=== PATIENT | male | born 1980 | race Caucasian/White ===

== ENCOUNTER 2017-01-14 05:26 | Day surgery (SDC) | payer BC ==
[~2017-01-14] VITALS: Ht 185.4 cm; Wt 101.2 kg
--- NOTE | ~2017-01-14 | H ---
[facility] [place] [address] HISTORY AND PHYSICAL Name: JESU CONNER Room #: DEP [facility] M..#: [id number] Admission: 01/14/17 Attend Phys: Pantera Lal MD Discharge: 01/14/17 Date of : 76 Report #: [id number] THIS REPORT FOR: //name// CC: Nitin Lal DATE OF SERVICE: 01/14/2017 ANTICIPATED DATE OF SERVICE: 01/14/3017. CHIEF COMPLAINT: Back and left leg pain with weakness. HISTORY OF PRESENT ILLNESS: The patient is a pleasant 36-year-old right-handed male who initially presented to the outpatient neurosurgery clinic in referral from Dr. Louie Fonseca for assessment and recommendation in management of presenting complaints. The patient's primary care provider is Dr. Young. The patient reports that he has had low back pain, left sided for several months. The patient's back pain complaints had been generally mild. The patient presented to physical therapy for 3 weeks and participated regularly without significant success. The patient reports that approximately three weeks ago, he awoke with pain in the left side of his back into his left lower extremity. The patient had severe pain down the left leg. Two days later, he had numbness and tingling associated with weakness in the left leg and foot. The patient describes his pain as radiating down the side of his leg and top of his foot. The patient has difficult time self rating his pain as he states it fluctuates significantly. The patient presented for assessment for Dr. Fonseca, but he had not submitted to epidural steroid injection at that time. He has been taking pain medication, which he says does help, but it does not relieve his complaints completely. He reports that he can make himself comfortable, but he can also have significant paroxysms of pain, which he can self rate at 10/10 on a visual analog scale for pain. He continues to feel numbness in his foot, but he reports this is not as significant as previous. The patient reports he has a challenging time getting up from a seated position as well as a difficult time getting up from a recumbent position. He reports that his left foot and ankle strength is somewhat improved. He denies right-sided lower extremity complaints. He denies any changes in bowel or bladder habits. No additional complaints were elicited at this time. PAST MEDICAL HISTORY: Denied. PAST SURGICAL HISTORY: Includes an appendectomy and sinus surgery. FAMILY MEDICAL HISTORY: Includes Alzheimer's disease, cancer, diabetes and high blood pressure. SOCIAL HISTORY: The patient is . He is self employed. He denies any [address] [address] HISTORY AND PHYSICAL Name: JESU CONNER Denise Room #: DEP [facility] M.R.#: [id number] Admission: 01/14/17 Attend Phys: Pantera Lal MD Discharge: 01/14/17 Date of : 76 Report #: [id number] history of tobacco abuse. He reports only two alcoholic beverages weekly. He denies any abuse of prescription medications. No illicit substance. CURRENT MEDICATIONS: Listed as Prevacid and "pain medication." ALLERGIES: DOCUMENTED TO PENICILLIN. REVIEW OF SYSTEMS: A 13-point review of systems is performed, which was positive for heartburn, seasonal allergies and snoring. The remainder of his review of systems was negative for additional medical issues other than those noted in the history of present illness and past medical history. PHYSICAL EXAMINATION: GENERAL: The patient is a well-developed, well-nourished male in no acute distress. He has a normal healthy body habitus. There is no dysmorphic features appreciated in his eyes, ears, nose or face. HEAD: Normocephalic and atraumatic. EYES: Pupils are equal and reactive. His extraocular muscles appear to be full. His sclerae are nonicteric. ORAL CAVITY: Tongue is in the midline. Mucosa is moist. Uvula and palate seem to elevate symmetrically. He has good dentition. NECK: Soft and supple. Trachea is midline. Cervical range of motion appears normal. SKIN: Warm and dry with good turgor. BACK: No obvious scoliosis, kyphosis or deformity. MUSCULOSKELETAL: No swelling or deformity appreciated. EXTREMITIES: No cyanosis, clubbing or edema. Capillary refill is normal. Peripheral pulses are 2+ at the radial artery at the wrist bilaterally. NEUROLOGIC: The patient is alert and oriented to person, place and time. His cognitive exam is grossly normal. No abnormal cerebellar findings appreciated. The patient's muscle tone and bulk appeared normal. Cranial nerves 2-12 appeared grossly intact. Motor strength is 5/5, full and symmetric, in the bilateral upper as well as lower extremities with the exception of 4/5 dorsiflexion and EHL strength. Deep tendon reflexes are 2/4 and symmetrical in bilateral biceps, brachioradialis, triceps, patella and Achilles tendons. No abnormal pectoral, Rogers's, or crossed adductor reflexes were elicited. No clonus was elicited at the ankles bilaterally. The patient barbi from a seated position with mild difficulty. He ambulates with an antalgic gait, favoring the left side with obvious left ankle weakness. Sensation is grossly intact to light touch, pin prick and proprioception of the bilateral upper as well as lower extremities. The patient demonstrates a positive left straight leg raise sign. PSYCHOLOGIC: The patient is cooperative with the examiner. He demonstrates good eye contact. Speech is clear. Judgment and insight appear reasonable. Thought processes are logical and goal directed. Mood and affect appeared normal and full range. [facility] [address] [place] [address] HISTORY AND PHYSICAL Name: JESU CONNER Room #: DEP [facility]..#: [id number] Admission: 01/14/17 Attend Phys: Pantera Lal MD Discharge: 01/14/17 Date of : 76 Report #: [id number] IMAGING STUDIES: MRI of the lumbar spine ([facility] 12/24/2016) demonstrates normal lumbar alignment. Mild degenerative disk disease and spondylotic changes, greatest at L4-L5. At L4-L5 on the left, there is a large intervertebral herniated disk with inferiorly directed free fragment in the left lateral recess with compression of the left L5 nerve root. DIAGNOSIS: L4-L5 herniated intervertebral disk with radiculopathy. PLAN: 1. We reviewed the patient's presenting complaints and their possible relationships to available clinical radiographic data. 2. The patient does appear to be symptomatic from L4-L5 herniated intervertebral disk with associated radiculopathy. 3. We reviewed options to improve the patient's presenting complaints including both continuing conservative management versus surgical intervention. At this point, having the nature of persistence of his complaints, the negative impact of these complaints on his daily life, abnormal findings and neurologic exam, and in correlation with the available imaging studies, I have advised the patient to proceed with surgical management. 4. Specifically, I advised the patient to submit to a left-sided L4-L5 minimally invasive microdiskectomy. 5. The goals of surgery as well as the risks and benefits were reviewed with the patient in the outpatient clinical setting and is adequately documented on outpatient chart. The risks of surgery include, but were not specifically limited to bleeding, infection, risk of cerebrospinal fluid leakage and its consequences, potential for injury to local structures including the nerve roots, which could result in permanent pain or disability, potential for development of structural instability, which could result in need for additional surgical intervention, failure of surgical intervention with residual or recurrent symptoms as well as the risks of undergoing general anesthesia and hospitalization. 6. The patient has had the opportunity to have his questions answered to his satisfaction. He has acknowledged understanding of the discussion as well as the proposed plan of care. 7. After careful consideration of our discussion, the patient wishes to proceed with surgical management. 8. The patient will be taken to the operating room and submit to a left-sided L4-L5 minimally invasive microdiskectomy. 9. It is anticipated the patient will be transferred from the post anesthesia care unit to a standard medical/surgical floor for pain control and mobilization with therapy services in preparation for discharge to home. [address] [address] HISTORY AND PHYSICAL Name: JESU CONNER Denise Room #: DEP [facility] M.R.#: [id number] Admission: 01/14/17 Attend Phys: Pantera Lal MD Discharge: 01/14/17 Date of : 76 Report #: [id number] 10. It is further anticipated the patient will follow up in the outpatient neurosurgery clinic per routine. <ELECTRONICALLY SIGNED> By: Pantera Lal MD 01/18/17 [id number] Pantera Lal MD /nt
--- NOTE | ~2017-01-14 | O ---
[facility] [place] [address] OPERATIVE REPORT Name: JESU CONNER Room #: DEP [facility].#: [id number] Admission: 01/14/17 Attend Phys: Pantera Lal MD Discharge: 01/14/17 Date of : 76 Report #: [id number] THIS REPORT FOR: //name// CC: Nitin Lal DATE OF SERVICE: 01/14/2017 PREOPERATIVE DIAGNOSIS: L4-L5 herniated intervertebral disk with radiculopathy. POSTOPERATIVE DIAGNOSIS: L4-L5 herniated intervertebral disk with radiculopathy. PROCEDURE PERFORMED: Left-sided L4-L5 minimally invasive microdiskectomy. SURGEON: Pantera Lal MD. DESULPHURING OPERATOR: None. ANESTHESIA: General endotracheal. INTRAOPERATIVE FLUIDS: 850 mL of crystalloid. URINE OUTPUT: No Stewart. ESTIMATED BLOOD LOSS: 5 mL. SPECIMEN: None. COMPLICATIONS: None apparent. FINDINGS: A large herniated intervertebral disk with free fragment, directed inferiorly at L4-L5 on the left side, displacing and compressing the left L5 nerve root. HISTORY: The patient is a pleasant 36-year-old male, who initially presented to the outpatient neurosurgery clinic with complaints of radiculopathy on the left side in an L5 distribution, associated with weakness in the foot and ankle on the left side. The patient has attempted conservative therapy without significant improvement. At this point in time, he is requesting surgical intervention. The goals of surgery, as well as risks and benefits were reviewed with the patient in outpatient clinical setting, and is adequately documented on the outpatient clinic chart. The patient and his family have acknowledged the understanding of this discussion, and they wished to proceed with surgery. Consent was signed and placed on the chart. [address] [address] OPERATIVE REPORT Name: JESU CONNER Denise Room #: DEP [facility].#: [id number] Admission: 01/14/17 Attend Phys: Pantera Lal MD Discharge: 01/14/17 Date of : 76 Report #: [id number] DESCRIPTION OF PROCEDURE: The patient was taken to the operating room by Anesthesia, having IVs placed preoperatively, he underwent successful placement of an endotracheal tube for general endotracheal anesthesia. Antibiotics were given per protocol. Stewart catheter was not placed. The patient was then rotated from the supine to prone position on top of the radiolucent Julian frame on top of the open top Wilfrid spine table. His arms were gently rotated to be positioned above his head with care taken to maintain his elbows and shoulders at less than 90 degrees of flexion. All pressure points were checked and found to be adequately padded. The patient's back was then cleaned, prepped, and draped in the usual sterile fashion. C-arm fluoroscopic unit was draped in the field sterilely to assist with intraoperative localization. An external skin marker was used to identify the L4-L5 disk space, and its position was translated to the skin on the patient's back. A marking pen was then used to william a 1 inch incision, one fingerbreadth to the left of midline, perpendicular to the william representing L4-L5 disk space. This marked incision was then infiltrated with 10 mL of 1% lidocaine with epinephrine. The skin itself was incised with #10 blade, down to the thoracolumbar fascia. The thoracolumbar fascia was incised with the same blade. Next, a K-wire was passed through the wound and fascial opening and docked on to the left lamina of L4. Over this, K-wire was passed, serial dilators from E[employer] MET[employer] retractor tray. When the wound was successfully dilated to 22 mm, a 22 mm x 5 cm long METRx retractor, it was passed over the dilators and secured to the table with articulating arm. The dilators were removed. The position and adequacy of the retractor was verified with lateral C-arm fluoroscopy. Next, the muscles overlying the left L4 lamina were reduced with Bovie electrocautery. High speed pneumatic drill with johnathan matchstick tipped bur was then used to initiate laminotomy at L4-L5 on the left side. Once the ligamentum flavum was identified, the laminotomy was expanded with various sized Kerrison punches. Nerve hook was then used to perforate the ligamentum flavum, exposing the underlying dura. With the dura in plain view, ligamentum flavum was resected with various sized Kerrison punches. Dissection was then proceeded laterally allowing the thecal sac to the ventral lateral aspect of the thecal sac, and the shoulder of the L5 nerve root. There was some adherence of the dura to the underlying soft tissues; however, there was an opening in the posterior longitudinal ligament, through which disk material was easily recovered with nerve hooks. This hole was slightly expanded using small Kerrison punches, and through this opening, additional disk material including several large pieces of free fragment of herniated intervertebral disk, which were projecting inferiorly underneath the proximal portion of the L5 nerve root were recovered. Next, dissection then proceeded further inferiorly with a large nerve hooks in which additional disk material was recovered. Dissection was then proceeded slightly superomedially. There was an opening in the annulus through which disk material was projecting in the ventral epidural space. This opening was expanded and then loose disk material was recovered within the disk space at L4-L5 itself. Dissection proceeded in to the ventral epidural space including the left L5 nerve root appeared to be free of any undue compression. Further dissection was [facility] [address] [place] [address] OPERATIVE REPORT Name: JESU CONNER Room #: DEP [facility]..#: [id number] Admission: 01/14/17 Attend Phys: Pantera Lal MD Discharge: 01/14/17 Date of : 76 Report #: [id number] then proceeded within the L4-L5 disk space to ensure there was no additional loose disk material within the disk space, like be expelled in the immediate postoperative period, that cause recurrent residual symptoms. Next, the wound was copiously irrigated with bacitracin containing irrigation, meticulous hemostasis obtained with bipolar electrocautery and FloSeal. Retractor tube was withdrawn to the skin surface. Muscle and fascia layer was closed with interrupted 2-0 Vicryl stitches. A 20 mL of 0.75% Marcaine with epinephrine was injected to the paraspinous muscle to act as local anesthesia. Skin itself was then closed with inverted interrupted 2-0 Vicryl stitches and running 4-0 subcuticular Vicryl stitch. Dressings of Mastisol, Steri-Strips, Telfa, and Tegaderm were applied. The patient was awoken from anesthesia and taken to PACU in hemodynamically stable and satisfactory condition. All needle, sponge, and instrument counts were correct times 2 per nursing at the end of the case. <ELECTRONICALLY SIGNED> By: Pnatera Lal MD 01/18/17 [id number] Pantera Lal MD /nt
[~2017-01-14 05:26] MED LIST: NABUMETONE 750750 M1 PO; NEURONTIN 300300 M1 PO; PREVACID30 MG PO
[2017-01-14 08:13] LABS: HEMATOCRIT 42.5 % (42.0-52.0); HEMOGLOBIN 15.1 gm/dL (14.0-18.0); MCH 29.1 pg (26.0-34.0); MCHC 35.4 g/dL (28.0-37.0); MCV 82.3 fL (80.0-100.0); RBC 5.17 mil/uL (4.50-6.00); WBC 5.7 thou/uL (4.0-11.0)
[2017-01-14 08:24] LABS: CALCIUM 8.9 mg/dL (8.5-10.1); CREATININE 1.2 mg/dL (0.6-1.3); POTASSIUM 4.1 mmol/L (3.5-5.1)
[2017-01-14 08:46] VITALS: BP 132/86
[2017-01-14] MEDS ORDERED: CYCLOBENZAPRINE10 MG PO (11:56)
[2017-01-14] MEDS ORDERED: HYDROCODONE-AP1 EAC6 PO (11:57)
[2017-01-14 16:40] VITALS: BP 132/86
== END 2017-01-14 18:11 | disposition home or self-care (01) ==
LOC: OR 05:26 → TBA 05:26 → OR 08:55 → 5S 13:15 → OR 14:34
PROVIDERS: Neurological Surgery
DX: M51.16 Intervertebral disc disorders with radiculopathy, lumbar region (principal); K21.9 Gastro-esophageal reflux disease without esophagitis; Z90.49 Acquired absence of other specified parts of digestive tract; Z87.891 Personal history of nicotine dependence
CPT/HCPCS: 50010; 50101; 50402; 50515; 50666; 50671; 50704; 50850; 51751; 51779; 53210; 56526; 56532; 62110; 62900; 70005